=== PATIENT | male | born 1970 | race Caucasian/White ===

== ENCOUNTER 2017-11-12 15:02 | Emergency (ER) | payer BC ==
[2017-11-12] MEDS ORDERED: ALBUTEROL NEB 2.5 MG/3 ML INH STA (15:15)
--- NOTE | 2017-11-12 15:16 | ED Physician Documentation ---
PD HPI URI - Stated complaint Stated Complaint: SOA/CP - Chief complaint Chief Complaint: Resp - History obtained from History obtained from: Patient - History of Present Illness Timing - onset: How many days ago (3) Timing duration: Days (3) Timing details: Gradual onset Pain level max: 3 Pain level now: 2 Associated symptoms: Fever (subjective), Chills, Nasal congestion, Rhinorrhea, Dry cough, Dyspnea (wheezing) Contributing factors: No: Sick contact, Travel, Immunocompromised, Unimmunized, COPD / asthma Improves by: Rest Worsened by: Activity, Breathing Recently seen: Not recently seen Review of Systems Constitutional: reports: Fever, Chills GI: denies: Vomiting Skin: denies: Rash Musculoskeletal: denies: Neck pain, Back pain Neurologic: denies: Headache PD PAST MEDICAL HISTORY - Past Medical History Past Medical History: No - Past Surgical History Past Surgical History: No - Present Medications Home Medications: Ambulatory Orders Medication Instructions Recorded Confirmed Albuterol Sulf [Ventolin Hfa 1 - 2 puffs INH Q4HR PRN #1 inhaler 11/12/17 Inhaler] Benzonatate [Tessalon Perle] 100 - 200 mg PO TID PRN #30 capsule 11/12/17 Doxycycline Hyclate 100 mg PO BID #20 capsule 11/12/17 - Allergies Allergies/Adverse Reactions: Allergies Allergy/AdvReac Type Severity Reaction Status Date / Time No Known Drug Allergies Allergy Verified 11/12/17 15:09 - Living Situation Living Situation: reports: With family Living Arrangement: reports: At home - Social History Does the pt smoke?: No Smoking Status: Never smoker Does the pt drink ETOH?: Yes Does the pt have substance abuse?: No - Family History Family history: reports: Non contributory PD ED PE NORMAL - Vitals Vital signs reviewed: Yes - General General: Alert and oriented X 3, No acute distress, Well developed/nourished - HEENT HEENT: PERRL, Ears normal, Moist mucous membranes, Pharynx benign - Neck Neck: Supple, no meningeal sign, No adenopathy - Cardiac Cardiac: RRR, Strong equal pulses - Respiratory Respiratory: No respiratory distress, Other (occasional wheeze and rhonchi B) - Abdomen Abdomen: Soft, Non tender, Non distended - Derm Derm: Warm and dry, No rash - Extremities Extremities: No edema - Neuro Neuro: Alert and oriented X 3 - Psych Psych: Normal mood, Normal affect Results - Vitals Vitals: Vital Signs - 24 hr 11/12/17 11/12/17 11/12/17 15:07 15:33 16:18 Temperature 36.9 C Heart Rate 101 H 110 H 102 H Respiratory 20 26 H 18 Rate Blood Pressure 122/79 130/88 H O2 Saturation 97 96 Oxygen O2 Source Room air - EKG (time done) 1514 Rate: Rate (enter#) (96) Rhythm: NSR [place]: Normal Intervals: Normal [place] QRS: Normal Ischemia: Normal ST segments - Rads (name of study) cxr Radiology: Prelim report reviewed, EMP read contemporaneously, See rad report ( Slight reticulonodular prominence in the right mid lung on the PA view, question infectious bronchiolitis in this clinical setting. ) PD MEDICAL DECISION MAKING - ED course Complexity details: reviewed results, re-evaluated patient, considered differential, d/w patient ED course: Patient is a 47-year-old male who presents to the emergency department with fevers and coughing. Appears to have a possible infectious bronchiolitis on the right side of his chest x-ray. Will cover with antibiotics. He feels better after albuterol treatment. He is well-appearing, nontoxic. No hypoxia. No respiratory distress. Patient counseled regarding signs and symptoms for which I believe and urgent re-evaluation would be necessary. Patient with good understanding of and agreement to plan and is comfortable going home at this time This document was made in part using voice recognition software. While efforts are made to proofread this document, sound alike and grammatical errors may occur. - Sepsis Event Vital Signs: Vital Signs - 24 hr 11/12/17 11/12/17 11/12/17 15:07 15:33 16:18 Temperature 36.9 C Heart Rate 101 H 110 H 102 H Respiratory 20 26 H 18 Rate Blood Pressure 122/79 130/88 H O2 Saturation 97 96 Oxygen O2 Source Room air Departure - Departure Disposition: 01 Home, Self Care Clinical Impression: Pneumonia Qualifiers: Pneumonia type: due to unspecified organism Laterality: right Lung location: middle lobe of lung Qualified Code(s): J18.1 - Lobar pneumonia, unspecified organism Condition: Good Instructions: ED Pneumonia Adult Follow-Up: your,doctor in 1 week [Other] Prescriptions: Albuterol Sulf [Ventolin Hfa Inhaler] 1 - 2 puffs INH Q4HR PRN #1 inhaler PRN Reason: Shortness Of Air/Wheezing Benzonatate [Tessalon Perle] 100 - 200 mg PO TID PRN #30 capsule PRN Reason: Cough Doxycycline Hyclate 100 mg PO BID #20 capsule Comments: Drink plenty of fluids and rest. Return if you worsen. Take all antibiotics until gone Discharge Date/Time: 11/12/17 16:19
--- NOTE | 2017-11-12 15:49 | XRAY Report ---
Reason: cough, fever Procedure Date: 11/12/2017 Accession Number: [id number] / [id number] Procedure: XR - Chest 2 View X-Ray CPT Code: 05492 FULL RESULT: EXAM: CHEST RADIOGRAPHY EXAM DATE: 11/12/2017 03:30 PM. CLINICAL HISTORY: Cough, fever. COMPARISON: None. TECHNIQUE: 2 views. FINDINGS: Lungs/Pleura: No pleural effusion or pneumothorax. Slight reticulonodular prominence in the right mid lung on the PA view. Mediastinum: Heart and mediastinal contours are unremarkable. Other: None. IMPRESSION: Slight reticulonodular prominence in the right mid lung on the PA view, question infectious bronchiolitis in this clinical setting. RADIA
[2017-11-12 16:19] VITALS: BP 130/88
== END 2017-11-12 16:19 | disposition home or self-care (01) ==
LOC: ED 15:02
DX: J18.1 Lobar pneumonia, unspecified organism (principal)
CPT/HCPCS: 71046; 93005; 94640; 99283; 99284

== ENCOUNTER 2017-11-14 02:48 | Emergency (ER) | payer BC ==
[2017-11-14] MEDS ORDERED: SODIUM CHLORIDE 0.9% 1,000 ML IV ONE (03:09)
[2017-11-14] MEDS ORDERED: DEXAMETHASONE 10 MG/ML VIAL IVP STA (03:09)
[2017-11-14] MEDS ORDERED: ALBUTEROL NEB 2.5 MG/3 ML INH STA (03:09)
[2017-11-14] MEDS ORDERED: IPRATROPIUM 0.2 MG/ML NEB INH STA (03:09)
[2017-11-14] MEDS ORDERED: CHERRY SYRUP 10 ML UDC PO ONE (03:20)
[2017-11-14 03:22] LABS: BASOPHILS % (AUTO) 0.5 %; EOSINOPHILS # (AUTO) 0.1 10^3/uL (0.0-0.7); EOSINOPHILS % (AUTO) 2.2 %; LYMPHOCYTES # (AUTO) 1.1 10^3/uL (1.5-3.5); LYMPHOCYTES % (AUTO) 25.1 %; MEAN CORPUSCULAR HGB CONC 34.8 g/dL (32.0-36.0); MEAN CORPUSCULAR VOLUME 97.8 fL (80.0-94.0); MEAN PLATELET VOLUME 7.7 fL (7.4-11.4); MONOCYTES # (AUTO) 0.5 10^3/uL (0.0-1.0); MONOCYTES % (AUTO) 9.8 %; NEUTROPHILS # (AUTO) 2.9 10^3/uL (1.5-6.6); NEUTROPHILS % (AUTO) 62.4 %; PLT - PLATELET COUNT 158 10^3/uL (130-450); RED BLOOD COUNT 4.12 10^6/uL (4.70-6.10); RED CELL DISTRIBUTION WIDTH 12.5 % (12.0-15.0); WHITE BLOOD COUNT 4.6 x10^3/uL (4.8-10.8)
[2017-11-14] MEDS ORDERED: ALBUTEROL NEB 2.5 MG/3 ML INH ONE (03:26)
[2017-11-14 03:34] LABS: ALBUMIN 3.9 g/dL (3.2-5.5); ALBUMIN/GLOBULIN RATIO 1.1 (1.0-2.2); BILIRUBIN,TOTAL 0.9 mg/dL (0.2-1.0); CALCIUM 8.2 mg/dL (8.5-10.3); TOTAL PROTEIN 7.5 g/dL (6.7-8.2)
[2017-11-14] MEDS ORDERED: IOPAMIDOL-300 100 ML VIAL ONE (03:47)
--- NOTE | 2017-11-14 04:22 | ED Physician Documentation ---
PD HPI DYSPNEA - Stated complaint Stated Complaint: SOA - Chief complaint Chief Complaint: Resp - Additional information Additional information: 47-year-old male presents the emergency department with complaints of shortness of breath. The patient was recently diagnosed with pneumonia and started on doxycycline, Tessalon Perles and an albuterol MDI. The patient returns this evening for reevaluation since he reports not feeling that much better. The patient denies fevers, chills, chest pain or peripheral edema. Symptoms are described as moderate. No other associated symptoms. Review of Systems Constitutional: reports: Myalgias, Fatigue. denies: Fever Eyes: denies: Discharge Ears: denies: Drainage/discharge Nose: reports: Congestion Throat: denies: Sore throat Cardiac: denies: Chest pain / pressure Respiratory: reports: Dyspnea, Cough, Wheezing GI: denies: Abdominal Pain : denies: Dysuria Skin: denies: Rash Musculoskeletal: denies: Neck pain Neurologic: denies: Generalized weakness Immunocompromised: denies: Chemotherapy PD PAST MEDICAL HISTORY - Past Medical History Past Medical History: Yes Other Past Medical History: HIV - Past Surgical History Past Surgical History: No - Present Medications Home Medications: Ambulatory Orders Medication Instructions Recorded Confirmed Albuterol Sulf [Ventolin Hfa 1 - 2 puffs INH Q4HR PRN #1 inhaler 11/12/17 Inhaler] Benzonatate [Tessalon Perle] 100 - 200 mg PO TID PRN #30 capsule 11/12/17 Doxycycline Hyclate 100 mg PO BID #20 capsule 11/12/17 - Allergies Allergies/Adverse Reactions: Allergies Allergy/AdvReac Type Severity Reaction Status Date / Time No Known Drug Allergies Allergy Verified 11/14/17 03:02 - Social History Does the pt smoke?: No Smoking Status: Never smoker Does the pt drink ETOH?: Yes Does the pt have substance abuse?: No - Immunizations Immunizations are current?: Yes - POLST Patient has POLST: No PD ED PE NORMAL - General General: Alert and oriented X 3, No acute distress - HEENT HEENT: Atraumatic, PERRL, EOMI, Moist mucous membranes - Neck Neck: No JVD - Cardiac Cardiac: RRR, Strong equal pulses - Respiratory Respiratory: No respiratory distress, Other (The patient has bilateral wheezing with decreased aeration. No respiratory distress) - Abdomen Abdomen: Soft, Non tender - Derm Derm: Normal color - Extremities Extremities: No deformity - Neuro Neuro: Alert and oriented X 3, Normal speech - Psych Psych: Normal mood Results - Vitals Vitals: Vital Signs - 24 hr 11/14/17 11/14/17 11/14/17 02:50 03:25 03:26 Temperature 37.1 C Heart Rate 106 H 84 98 Respiratory 18 12 14 Rate Blood Pressure 153/98 H 121/77 O2 Saturation 95 99 11/14/17 03:58 Temperature Heart Rate 98 Respiratory 17 Rate Blood Pressure 126/70 O2 Saturation 98 Oxygen O2 Source Room air - EKG (time done) No standard instances Rhythm: NSR Intervals: Normal [place], QRS normal QRS: Normal Ischemia: Normal ST segments - Labs Labs: Laboratory Tests 11/14/17 11/14/17 11/14/17 03:10 03:10 03:10 WBC 4.6 L RBC 4.12 L Hgb 14.0 Hct 40.3 L MCV 97.8 H MCH 34.0 H MCHC 34.8 RDW 12.5 Plt Count 158 MPV 7.7 Neut # (Auto) 2.9 Lymph # (Auto) 1.1 L [place] # (Auto) 0.5 Eos # (Auto) 0.1 Baso # (Auto) 0.0 Absolute Nucleated RBC 0.00 Nucleated RBC % 0.1 Sodium 135 Potassium 3.6 Chloride 102 Carbon Dioxide 25 Anion Gap 8.0 BUN 8 Creatinine 1.0 Estimated GFR (MDRD) 80 L Glucose 115 H Lactic Acid Calcium 8.2 L Total Bilirubin 0.9 AST 38 ALT 26 Alkaline Phosphatase 36 L Troponin I < 0.04 Total Protein 7.5 Albumin 3.9 Globulin 3.6 Albumin/Globulin Ratio 1.1 Lipase 27 11/14/17 03:10 WBC RBC Hgb Hct MCV MCH MCHC RDW Plt Count MPV Neut # (Auto) Lymph # (Auto) [place] # (Auto) Eos # (Auto) Baso # (Auto) Absolute Nucleated RBC Nucleated RBC % Sodium Potassium Chloride Carbon Dioxide Anion Gap BUN Creatinine Estimated GFR (MDRD) Glucose Lactic Acid 1.0 Calcium Total Bilirubin AST ALT Alkaline Phosphatase Troponin I Total Protein Albumin Globulin Albumin/Globulin Ratio Lipase - Rads (name of study) CXR Radiology: Final report received PD MEDICAL DECISION MAKING - ED course ED course: The patient's workup does not reveal evidence of sepsis, acute CHF, pulmonary embolism, acute AL or an etiology that would necessitate admission to the hospital. Reevaluation the patient resting comfortably, he had significant improvement with albuterol in the emergency department. The patient's symptoms are more consistent with a acute bronchitis. The patient was given a dose of Decadron in the emergency department. Currently I would not recommend changing the antibiotic that is on and I recommended continuing the inhaler and Tessalon Perles. The patient appears appropriate for discharge and ongoing outpatient management. I discussed warning signs and recommended returning to the emergency department immediately for worsening or any concerns - Sepsis Event Vital Signs: Vital Signs - 24 hr 11/14/17 11/14/17 11/14/17 02:50 03:25 03:26 Temperature 37.1 C Heart Rate 106 H 84 98 Respiratory 18 12 14 Rate Blood Pressure 153/98 H 121/77 O2 Saturation 95 99 11/14/17 03:58 Temperature Heart Rate 98 Respiratory 17 Rate Blood Pressure 126/70 O2 Saturation 98 Oxygen O2 Source Room air Departure - Departure Disposition: 01 Home, Self Care Clinical Impression: Dyspnea Qualifiers: Dyspnea type: unspecified Qualified Code(s): R06.00 - Dyspnea, unspecified Acute bronchitis Qualifiers: Bronchitis organism: unspecified organism Qualified Code(s): J20.9 - Acute bronchitis, unspecified Condition: Good Instructions: ED Dyspnea Shortness of Breath, ED Reactive Airway Disease Comments: Please follow-up with primary care for reevaluation and further management. Please return to the emergency department immediately for worsening symptoms or any concerns
[2017-11-14] MEDS ORDERED: IOPAMIDOL-300 100 ML VIAL IVP ONE (04:35)
--- NOTE | 2017-11-14 04:41 | CT Report ---
Reason: SOA Procedure Date: 11/14/2017 Accession Number: [id number] / [id number] Procedure: CT - Chest Angio (PE) CPT Code: FULL RESULT: EXAM: CT ANGIOGRAM CHEST EXAM DATE: 11/14/2017 04:32 AM. CLINICAL HISTORY: Shortness of breath COMPARISON: None. TECHNIQUE: Routine helical imaging was performed through the chest in the pulmonary arterial phase. IV Contrast: 80 ML ISOVUE 300. Reconstructions: Coronal 3-D MIP reconstructions.Sagittal and coronal. In accordance with CT protocol optimization, one or more of the following dose reduction techniques were utilized for this exam: automated exposure control, adjustment of mA and/or KV based on patient size, or use of iterative reconstructive technique. FINDINGS: Pulmonary Arteries: Diagnostic quality: Adequate through the segmental arteries. No evidence for acute or chronic pulmonary emboli. RV/LV is within normal limits. There is no interventricular septal bowing. There is no reflux of contrast material in the IVC. Lungs/Pleura: No consolidation, nodules, or edema. No effusions or pneumothorax. Mediastinum: Normal. No cardiac enlargement or adenopathy. Thoracic Aorta: Unremarkable. Upper Abdomen: Unremarkable. Other: None. IMPRESSION: Normal pulmonary CT angiogram. No pulmonary emboli. RADIA
[2017-11-14 04:59] VITALS: BP 129/71
== END 2017-11-14 05:05 | disposition home or self-care (01) ==
LOC: ED 02:48
DX: J20.9 Acute bronchitis, unspecified (principal)
CPT/HCPCS: 36415; 71275; 80053; 83605; 83690; 84484; 85025; 87040; 93005; 94640; 96361; 96374; 99283; 99284; A9270; Q9967